=== PATIENT | female | born 1980 | race African-American/Black ===

== ENCOUNTER 2022-06-18 23:50 | Emergency (ER) | payer SELFPAY ==
[~2022-06-18] VITALS: Ht 160 cm; Wt 70.0 kg
[2022-06-19 00:04] VITALS: BP 148/111
== END 2022-06-19 04:05 | disposition home or self-care (01) ==
LOC: ER 23:50
DX: F15.10 Other stimulant abuse, uncomplicated (principal)
CPT/HCPCS: 99283

== ENCOUNTER 2022-06-19 05:33 | Emergency (ER) | payer SELFPAY ==
[~2022-06-19] VITALS: Ht 157.5 cm; Wt 70.0 kg
[2022-06-19 07:31] LABS: BASOPHILS % 1.2 % (0.0-2.0); EOSINOPHILS % 1.3 % (0.0-5.0); HEMATOCRIT. 34.1 % (36.0-48.0); HEMOGLOBIN. 11.2 g/dL (12.0-16.0); LYMPHOCYTES % 20.8 % (20.0-50.0); MEAN CORPUSCULAR HEMOGLOBIN 29.7 pg (28.0-32.0); MEAN CORPUSCULAR VOLUME 90.3 fL (81.0-99.0); MEAN PLATELET VOLUME 8.6 fl (7.4-10.4); MONOCYTES % 7.7 % (2.0-8.0); PLATELET 346 x1000/uL (130-400); RED BLOOD CELL COUNT 3.77 mill/uL (4.2-5.4); RED CELL DISTRIBUTION WIDTH 14.8 % (11.6-14.6)
[2022-06-19 07:41] LABS: CHLORIDE 111 mEq/L (98-107)
[2022-06-19 07:48] LABS: ETHANOL BLOOD < 10 mg/dL
[2022-06-19] MEDS ORDERED: ACETAMINOPHEN 325MG TABLET PO ONE (08:00)
[2022-06-19 20:05] LABS: CLARITY URINE CLEAR (CLEAR); COLOR URINE YELLOW (YELLOW); KETONES URINE TRACE (NEGATIVE); LEUKOCYTE ESTERASE URINE NEGATIVE (NEGATIVE); NITRITE URINE NEGATIVE (NEGATIVE); OCCULT BLOOD URINE TRACE (NEGATIVE); PH URINE 6.5 (4.5-8.0); PROTEIN URINE TRACE (NEGATIVE); SPECIFIC GRAVITY URINE 1.033 (1.005-1.030)
[2022-06-19] MEDS ORDERED: IBUPROFEN 600MG TABLET PO ONE (20:15)
[2022-06-19 20:19] LABS: *BARBITURATES SCREEN URINE NEGATIVE (NEGATIVE); *BENZODIAZEPINES SCREEN URINE NEGATIVE (NEGATIVE); METHADONE URINE SCREEN NEGATIVE (NEGATIVE); OPIATES URINE SCREEN NEGATIVE (NEGATIVE)
[2022-06-19 20:37] LABS: *AMPHETAMINES SCREEN URINE PRESUMTIVE POSITIVE (NEGATIVE); *COCAINE SCREEN URINE PRESUMTIVE POSITIVE (NEGATIVE); CANNABINOID URINE SCREEN PRESUMTIVE POSITIVE (NEGATIVE); PHENCYCLIDINE URINE SCREEN PRESUMTIVE POSITIVE (NEGATIVE)
[2022-06-19] MEDS: LEVETIRACETAM 500MG TABLET PO SCH (22:00)
[2022-06-20] MEDS: LEVETIRACETAM 500MG TABLET PO SCH (08:23)
[2022-06-20 09:30] VITALS: BP 127/83
== END 2022-06-20 09:59 | disposition home or self-care (01) ==
LOC: ER 05:33
DX: F23 Brief psychotic disorder (principal); F19.10 Other psychoactive substance abuse, uncomplicated; F15.10 Other stimulant abuse, uncomplicated; Z20.822 Contact with and (suspected) exposure to COVID-19
CPT/HCPCS: 36415; 80053; 80305; 80320; 81003; 81025; 84702; 85025; 99285; C9803; U0003; U0005; G0480